=== PATIENT | female | born 1995 | race Caucasian/White ===

== ENCOUNTER 2016-08-06 20:33 | Emergency (ER) | payer OTHER ==
[2016-08-06] MEDS ORDERED: TOPA100T8 PO (20:46)
[2016-08-06] MEDS ORDERED: KLON0.5T PO (20:46)
[2016-08-06] MEDS ORDERED: NAPROXEN 250 MG TAB PO ONE (22:00)
[2016-08-06] MEDS ORDERED: NAPR500T PO (22:40)
[2016-08-06 22:58] VITALS: BP 156/86
--- NOTE | 2016-08-07 11:22 | REP ---
LEFT KNEE: HISTORY: Pain after a fall, particularly affecting the patella. There is a tiny flake-like radiodensity adjacent to the medial border of the patella. There does appear to be soft tissue swelling. The exam is otherwise unremarkable. IMPRESSION: Possible tiny medial patellar avulsion fracture, correlate clinically for point tenderness. Signed by Yfn Veras DO 08/07/2016 01:32 P
--- NOTE | 2016-08-08 08:52 | ED PDOC ---
Post-Departure Follow-Up radiology report demonstrated ?tiny avulsion fx of patella - patient was placed in knee immobilizer and on crtuches with followup at home [facility]. charge nurse notified who contacted patient to advise of possible fracture, need to continue immobilizer and followup with ortho Cathryn Rubi MD August 08, 2016 08:52
== END 2016-08-06 22:59 | disposition home or self-care (01) ==
LOC: EDBD 20:33 → M ED 21:22
DX: S83.92XA Sprain of unspecified site of left knee, initial encounter (principal); W19.XXXA Unspecified fall, initial encounter; Y92.89 Other specified places as the place of occurrence of the external cause; Y93.89 Activity, other specified; Y99.0 Civilian activity done for income or pay; R56.9 Unspecified convulsions; F17.210 Nicotine dependence, cigarettes, uncomplicated; Z79.899 Other long term (current) drug therapy

== ENCOUNTER → 2016-11-21 | Outpatient (CLI) | payer OTHER ==
[~2016-11-21] MED LIST: KLON0.5T PO; NAPR500T PO; TOPA100T12 PO
== END ==
LOC: M WUC 17:24
PROVIDERS: ATTEND Physician Assistant
DX: Z02.1 Encounter for pre-employment examination (principal)

== ENCOUNTER → 2018-04-25 | Outpatient (CLI) | payer BC ==
[~2018-04-25] MED LIST changes: +NAPR-50 PO; -NAPR500T PO
[2018-04-27 08:41] LABS: MUMPS VIRUS IgG ANTIBODY <9.0 AU/mL (Immune >10.9); RUBEOLA IgG ANTIBODY 40.5 AU/mL (Immune >29.9)
[2018-04-27 10:16] LABS: RUBELLA IgG QUALITATIVE IMMUNE (IMMUNE)
== END ==
LOC: M WUC 14:31
PROVIDERS: ATTEND Physician Assistant
DX: Z02.1 Encounter for pre-employment examination (principal)

== ENCOUNTER → 2018-11-06 | Outpatient (CLI) | payer BC ==
[~2018-11-06] MED LIST changes: -NAPR-50 PO; +NAPR-837 PO
[2018-11-06 17:41] LABS: BASO % 0.4 % (0.0-1.0); EOS # 0.1 10^3/uL (0.0-0.50); EOS % 0.9 % (0.0-3.0); HEMATOCRIT 42.4 % (36.0-47.0); HEMOGLOBIN 14.5 g/dl (12.0-15.5); LYMPH # 2.8 10^3/uL (1.5-6.5); LYMPH % 25.3 % (24.0-44.0); MEAN CORPUSCULAR HEMOGLOBIN 28.9 pg (27.0-33.0); MEAN CORPUSCULAR HGB CONC 34.2 g/dl (32.0-36.5); MEAN CORPUSCULAR VOLUME 84.6 fl (80.0-96.0); MONO # 0.7 10^3/uL (0.0-0.8); MONO % 6.6 % (0.0-5.0); NEUTROPHILS # 7.2 10^3/uL (1.8-7.7); NEUTROPHILS % 66.5 % (36.0-66.0); PLATELET COUNT, AUTOMATED 243 10^3/uL (150-450); RED BLOOD COUNT 5.01 10^6/uL (4.00-5.40); WHITE BLOOD COUNT 10.9 10^3/uL (4.0-10.0)
[2018-11-06 18:03] LABS: ALBUMIN 3.6 GM/DL (3.2-5.2); ALT/SGPT 31 U/L (12-78); BILIRUBIN,TOTAL 0.3 MG/DL (0.2-1.0); BLOOD UREA NITROGEN 9 MG/DL (7-18); CALCIUM LEVEL 8.9 MG/DL (8.5-10.1); CARBON DIOXIDE LEVEL 21 MEQ/L (21-32); CHLORIDE LEVEL 112 MEQ/L (98-107); CHOLESTEROL LEVEL 200 MG/DL (<200); CREATININE FOR GFR 0.85 MG/DL (0.55-1.30); GLOMERULAR FILTRATION RATE > 60.0 (>60); GLUCOSE, FASTING 96 MG/DL (70-100); HDL CHOLESTEROL 50 MG/DL (>40); LDL CHOLESTEROL 108 MG/DL (<100); NON-HDL-C 150 MG/DL; POTASSIUM SERUM 3.7 MEQ/L (3.5-5.1); SODIUM LEVEL 141 MEQ/L (136-145); THYROID STIMULATING HORMONE 0.732 uIU/ML (0.358-3.740); TOTAL 25(OH) VITAMIN D 16.6 NG/ML (30.0-100.0); TRIGLYCERIDES LEVEL 208 MG/DL (<150)
[2018-11-06 19:29] LABS: CHLAMYDIA DNA AMPLIFICATION NEGATIVE (NEGATIVE); GC DNA AMPLIFICATION NEGATIVE (NEGATIVE)
[2018-11-07 11:29] LABS: HEPATITIS C VIRUS ABY INDEX 0.1 INDEX (<0.8)
[2018-11-07 11:30] LABS: HIV 1&2 SCREEN CENTAUR NEGATIVE (NEGATIVE)
== END ==
LOC: EDBD 16:02 → M LAB 16:02
DX: G40.89 Other seizures (principal); R53.82 Chronic fatigue, unspecified; E78.2 Mixed hyperlipidemia; R30.0 Dysuria; Z11.3 Encounter for screening for infections with a predominantly sexual mode of transmission; Z11.59 Encounter for screening for other viral diseases; Z20.5 Contact with and (suspected) exposure to viral hepatitis; Z20.6 Contact with and (suspected) exposure to human immunodeficiency virus [HIV]